=== PATIENT | male | born 1960 | race Caucasian/White ===

== ENCOUNTER 2023-09-24 12:11 | Inpatient (IN) | payer OTHER, SELFPAY ==
[2023-09-24 12:40] LABS: Absolute Eosinophils 0.2 K/uL (0-0.5); Absolute Lymphocytes (CBC) 1.9 K/uL (0.7-4.9); Absolute Monocytes 0.8 K/uL (0.1-1.3); Absolute Neutrophil 7.6 K/uL (1.8-8.0); Basophils % 0.3 % (0-1.3); Hematocrit 49.1 % (39.6-49.0); Hemoglobin 16.5 g/dL (13.6-17.9); Lymphocytes % 18.3 % (15.3-44.8); MCH 32.5 pg (27.0-35.0); MCHC 33.5 g/dL (32.0-36.0); MCV 96.9 fL (80-100); MPV 10.4 fL (7.6-11.3); Monocytes % 7.5 % (3.3-12.3); Neutrophils % 71.9 % (41.7-73.7); Platelets 159 thou/uL (152-406); RBC Red Blood Cell Count 5.07 M/uL (4.33-5.43); Red Cell Distribution Width 13.1 % (12.1-15.2)
[2023-09-24 12:45] LABS: PT Prothrombin Time 10.5 SECONDS (9.5-12.5); PTT, Activated Partial Thromb 29.3 SECONDS (24.3-36.9); Protime INR 0.95
--- NOTE | 2023-09-24 12:54 | RAD REPORT ---
EXAM DESCRIPTION: CT - Ct Stroke Brain Wo Cont - 09/24/2023 12:46 pm CLINICAL HISTORY: STROKE ALERT Headache, drowsiness, CVA symptomology COMPARISON: No comparisons TECHNIQUE: All CT scans are performed using dose optimization technique as appropriate and may inclu de automated exposure control or mA/KV adjustment according to patient size. FINDINGS: No intracranial hemorrhage, hydrocephalus or extra-axial fluid collection.Small right lacu fariba infarcts.No areas of brain edema or evidence of midline shift. Increased density is seen in the d ural venous sinuses and the intravascular structures. The paranasal sinuses and mastoids are clear. The calvarium is intact. IMPRESSION: No acute intracranial abnormality. Increased density in the dural venous sinuses and intravascular structures noted. This is of unclear etiology and significance and may be related to underlying blood conditions such as polycythemia. Adv ise clinical correlation. The findings were discussed with Dr. Ingram in the ER On 09/24/2023 at 12:20 p.m. by telephone.
[2023-09-24 13:00] LABS: Albumin 3.8 g/dL (3.4-5.0); Anion Gap 10.1 mEq/L (5.0-15.0); Bilirubin Direct 0.1 mg/dL (0-0.2); Bilirubin Indirect, Calculated 0.3 mg/dL (0.2-0.8); Bilirubin Total 0.4 mg/dL (0.2-1.0); Globulin 3.8 g/dL (2.3-3.5); Magnesium 2.1 mg/dL (1.6-2.4); Potassium 4.1 mEq/L (3.5-5.1); Protein, Total 7.6 g/dL (6.4-8.2); Troponin High Sensitivity 9.1 pg/mL (<58.9)
--- NOTE | 2023-09-24 13:03 | RAD REPORT ---
EXAM DESCRIPTION: CT - Head angio - 09/24/2023 12:52 pm CLINICAL HISTORY: LT SIDED WEAKNESS Headache, drowsiness, CVA symptomology COMPARISON: <Comparisons> TECHNIQUE: CT angiography of the head was performed with MIPs. All CT scans are performed using dose optimization technique as appropriate and may include automated exposure control or mA/KV adjustment according to patient size. FINDINGS: No evidence of large vessel occlusion. No evidence of aneurysm is detected. No flow-limiti ng stenosis or vascular malformation identified. Left vertebral artery appears dominant. There is diminutive flow seen in the vertebrobasilar system w ith significant flow reduction in the proximal basilar artery which may indicate stenosis. The visualized dural venous sinuses are patent. IMPRESSION: Diminished flow in the vertebrobasilar system is noted, with significant flow restrictio n in the proximal basilar which may indicate an focus of flow limiting stenosis. Elsewhere, no significant flow abnormality seen.
--- NOTE | 2023-09-24 13:07 | RAD REPORT ---
EXAM DESCRIPTION: CT - Neck Angio - 09/24/2023 12:52 pm CLINICAL HISTORY: LT SIDED WEAKNESS Headache, drowsiness, CVA symptomology COMPARISON: <Comparisons> TECHNIQUE: CT angiography of the neck vessels was performed with MIPs. All CT scans are performed using dose optimization technique as appropriate and may include automated exposure control or mA/KV adjustment according to patient size. FINDINGS: A left aortic arch is identified with normal three vessel configuration of the great vesse ls. No significant flow abnormality is seen of the common carotid bilaterally. Mild mixed plaque formation is seen in both carotid bulbs resulting in stenosis of 50% or less bilate rally based on NASCET criteria. The right vertebral artery is quite diminutive in caliber. The left vertebral artery demonstrates for flow and is dominant. Basilar artery intracranially shows probable stenosis of its mid aspect focall y. IMPRESSION: Mixed plaque formation in both carotid bulbs is mild and results in 50% or less stenosis bilaterally based on NASCET criteria. The right vertebral artery is very diminutive. 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 NASCET criteria used. Mild 0-49% stenosis Moderate 50-69% stenosis Severe 70-99% stenosis
--- NOTE | 2023-09-24 13:10 | RAD REPORT ---
EXAM DESCRIPTION: RAD - Chest Single View - 09/24/2023 12:56 pm CLINICAL HISTORY: stroke aler Chest pain. COMPARISON: No comparisons FINDINGS: Portable technique limits examination quality. Mild interstitial prominence is seen which is nonspecific. This may be related to mild interstitial p ulmonary edema or chronic bronchitis. The heart is upper limit normal in size. No displaced fractures .
--- NOTE | 2023-09-24 14:24 | EDPHYS ---
Physician Documentation [facility] Name: Mike Bills Age: 63 yrs Sex: Male : 1960 Arrival Date: 09/24/2023 Time: 12:11 Bed 3 Private MD: ED Physician Rebecca Fisher HPI: 09/23 13:50 This 63 yrs old Male presents to ER via Wheelchair with complaints of High Blood sd2 Pressure, S/S of Possible Stroke. 13:50 63 yo M presents with CC of stroke-like symptoms. reports he called her at 1101 sd2 saying he did not feel right and was having trouble lifting his left leg and slurred speech. Currently all symptoms have improved. Denies any associated numbness, tingling, vision changes. . Historical: - Allergies: 12:35 No Known Allergies; aa5 - PMHx: 12:35 Borderline Diabetes; Acid Reflux; Hip fracture and pelvic fracture; aa5 - PSHx: 12:35 None; aa5 - Immunization history:: Adult Immunizations unknown. - Infectious Disease History:: Denies. - Social history:: Smoking status: Patient reports the use of cigarette tobacco products. ROS: 13:50 Constitutional: Negative for fever, chills, and weight loss, Eyes: Negative for injury, sd2 pain, redness, and discharge, Cardiovascular: Negative for chest pain, palpitations, and edema, Respiratory: Negative for shortness of breath, cough, wheezing. Abdomen/GI: Negative for abdominal pain, nausea, vomiting, diarrhea. MS/Extremity: Negative for injury and deformity, Skin: Negative for injury, rash, and discoloration, Neuro: Negative for headache, numbness and tingling. Positive for weakness and slurred speech. Exam: 13:50 Constitutional: This is a well developed, well nourished patient who is awake, alert, sd2 and in no acute distress. Head/Face: Normocephalic, atraumatic. Eyes: EOMI, normal conjunctiva bilaterally Chest/axilla: Normal chest wall appearance and motion. Nontender with no deformity. Cardiovascular: Regular rate and rhythm with a normal S1 and S2. No gallops, murmurs, or rubs. 2+ distal pulses. Respiratory: Lungs have equal breath sounds bilaterally, clear to auscultation and percussion. No rales, rhonchi or wheezes noted. No increased work of breathing, no retractions or nasal flaring. Abdomen/GI: Soft, non-tender, with normal bowel sounds. No guarding or rebound. No evidence of tenderness throughout. Skin: Warm, dry with normal turgor. Normal color with no rashes, no lesions, and no evidence of cellulitis. MS/ Extremity: Pulses equal, no cyanosis. Neurovascular intact. Full, normal range of motion. Neuro: Awake and alert, GCS 15, oriented to person, place, time, and situation. Cranial nerves II-XII grossly intact. Motor strength 5/5 in all extremities. Sensory grossly intact. Cerebellar exam normal. Normal gait. Psych: Awake, alert, with orientation to person, place and time. Behavior, mood, and affect are within normal limits. 14:25 ECG was reviewed by the Attending Physician. NSR, rate 80, no STEMI criteria or sd2 significant ST-T wave changes Vital Signs: 12:28 BP 180 / 78; Pulse 83; Resp 16 S; Pulse Ox 99% on R/A; Weight 81.65 kg (R); Height 6 kc6 ft. 0 in. (R); Pain 0/10; 12:30 BP 172 / 91; Pulse 85; Resp 19 S; Pulse Ox 99% on R/A; kc6 14:00 BP 167 / 82; Pulse 78; Resp 16; Pulse Ox 99% ; tl4 14:30 BP 159 / 81; Pulse 97; Resp 20; Pulse Ox 100% on R/A; Pain 0/10; tl4 12:28 Body Mass Index 24.41 (81.65 kg, 182.88 cm) kc6 12:28 Pain Scale: Adult kc6 14:30 Pain Scale: Adult tl4 NIH Stroke Scale Scores: 12:14 NIHSS Score: 3 aa5 12:17 NIHSS Score: 1 kc6 MDM: 12:16 Patient medically screened. sd2 12:52 Differential diagnosis: hypertensive crisis, Malignant HTN, CVA, intracerebral sd2 hemorrhage, among others. Data reviewed: vital signs, nurses notes, lab test result(s), EKG, radiologic studies. Management of patient was discussed with the following: Health Care Specialist: Dr. Chen, Neurology, agrees with no TNK as patient with no focal neuro deficits at this time. Recommends admission and TIA workup evaluation including MRI, echo and permissive HTN . Independent interpretation of the following test(s) in the Emergency Department EKG: See my EKG interpretation above. Discussion of test interpretation with radiology: I had a discussion with radiology regarding a test interpretation. no bleed or clear signs of CVA. Historians other than the Patient: Spouse/Significant Other: Significant other at bedside provides further hx. Care significantly affected by the following chronic conditions: Diabetes. Counseling: I had a detailed discussion with the patient and/or guardian regarding the historical points, exam findings, and any diagnostic results supporting the discharge/admit diagnosis, lab results, radiology results. 14:21 ED course: Labs and imaging reviewed and discussed with patient and family at bedside. sd2 Recommended admission and pt in agreement. . 09/23 12:29 Order name: Basic Metabolic Panel; Complete Time: 13:01 sd2 09/23 12:29 Order name: CBC with Diff; Complete Time: 12:58 sd2 09/23 12:29 Order name: Hepatic Function; Complete Time: 13:01 sd2 09/23 12:29 Order name: High Sensitivity Troponin; Complete Time: 13:01 sd2 09/23 12:29 Order name: Magnesium; Complete Time: 13:01 sd2 09/23 12:29 Order name: Protime (+inr); Complete Time: 12:58 sd2 09/23 12:29 Order name: Ptt, Activated; Complete Time: 12:58 sd2 09/23 12:46 Order name: Glucose, Ancillary Testing; Complete Time: 12:58 EDMS 09/23 14:24 Order name: CREATININE WHOLE BLOOD; Complete Time: 14:25 EDMS 09/23 12:29 Order name: CT Stroke Brain w/o Contrast; Complete Time: 12:58 sd2 09/23 12:29 Order name: Stroke CXR 1 View; Complete Time: 13:18 sd2 09/23 12:44 Order name: Head angio; Complete Time: 13:18 EDMS 09/23 12:44 Order name: Neck Angio; Complete Time: 13:18 EDMS 09/23 12:28 Order name: Accucheck; Complete Time: 12:39 aa5 09/23 12:28 Order name: Cardiac monitoring; Complete Time: 12:39 aa5 09/23 12:28 Order name: EKG - Nurse/Tech; Complete Time: 12:39 09/23 12:28 Order name: IV Saline Lock; Complete Time: 12:39 09/23 12:28 Order name: Labs collected and sent; Complete Time: 12:39 09/23 12:28 Order name: NPO; Complete Time: 12:29 09/23 12:28 Order name: O2 Per Protocol; Complete Time: 12:29 09/23 12:28 Order name: O2 Sat Monitoring; Complete Time: 12:29 09/23 12:28 Order name: Stroke Swallow Screen; Complete Time: 12:39 09/23 12:29 Order name: Accucheck; Complete Time: 12:39 09/23 12:29 Order name: Cardiac monitoring; Complete Time: 12:39 09/23 12:29 Order name: EKG - Nurse/Tech; Complete Time: 12:39 09/23 12:29 Order name: IV Saline Lock; Complete Time: 12:39 09/23 12:29 Order name: Labs collected and sent; Complete Time: 12:39 09/23 12:29 Order name: NPO; Complete Time: 12:39 09/23 12:29 Order name: O2 Per Protocol; Complete Time: 12:39 09/23 12:29 Order name: O2 Sat Monitoring; Complete Time: 12:39 09/23 12:29 Order name: Stroke Swallow Screen; Complete Time: 12:39 sd2 Administered Medications: No medications were administered Point of Care Testing: Blood Glucose: 12:47 Blood Glucose: 272 mg/dL; kc6 Ranges: Critical Glucose Levels:Adult <50 mg/dl or >400 mg/dl <40 mg/dl or >180 mg/dl Disposition Summary: 09/24/23 14:23 Hospitalization Ordered Notes: Hospitalization Status: Inpatient Admission sd2 Provider: Gian Simmons Location: Telemetry/[facility] (Inpatient) sd2 Condition: Stable sd2 Problem: new sd2 Symptoms: have improved sd2 Bed/Room Type: Standard sd2 Room Assignment: 403(09/24/23 14:59) bc6 Diagnosis - Weakness sd2 - Slurred speech sd2 - Elevated blood-pressure reading, without diagnosis of hypertension sd2 - Hyperglycemia, unspecified sd2 Forms: - Medication Reconciliation Form sd2 - SBAR form sd2 - Leadership Thank You Letter sd2 NIH Stroke Scale - NIH Stroke Score Date: 09/24/2023 Time: 12:14 Total Score = 3 10. Dysarthria (speech clarity - read or repeat words) - 1(Mild to Moderate) 11. Extinction and Inattention (visual/tactile/auditory/spatial/personal) - 0(No abnormality) 1a. Level of Consciousness (LOC) - 0(Alert) 1b. Level of Consciousness (LOC) (Month \T\ Age) - 0(Both) 1c. LOC Commands (Open \T\ Closes Eyes/Advertising Columnist) - 0(Both) 2. Best Gaze (Lateral Gaze Paresis) - 0(Normal) 3. Visual Field Loss - 0(No visual loss) 4. Facial Palsy - 0(Normal) 5a. Left Arm: Motor (10-second hold) - 1(Drift) 5b. Right Arm: Motor (10-second hold) - 0(No drift) 6a. Left Leg: Motor (5-second hold - always test supine) - 1(Drift) 6b. Right Leg: Motor (5-second hold - always test supine) - 0(No drift) 7. Limb Ataxia (finger/nose \T\ heel/knowles - test with eyes open) - 0(Absent) 8. Sensory Loss (pinprick arms/legs/face) - 0(Normal) 9. Best Language: Aphasia (description/naming/reading) - 0(No aphasia) Initials: aa5 NIH Stroke Scale - NIH Stroke Score Date: 09/24/2023 Time: 12:17 Total Score = 1 10. Dysarthria (speech clarity - read or repeat words) - 0(Normal) 11. Extinction and Inattention (visual/tactile/auditory/spatial/personal) - 0(No abnormality) 1a. Level of Consciousness (LOC) - 0(Alert) 1b. Level of Consciousness (LOC) (Month \T\ Age) - 0(Both) 1c. LOC Commands (Open \T\ Closes Eyes/Advertising Columnist) - 0(Both) 2. Best Gaze (Lateral Gaze Paresis) - 0(Normal) 3. Visual Field Loss - 0(No visual loss) 4. Facial Palsy - 0(Normal) 5a. Left Arm: Motor (10-second hold) - 0(No drift) 5b. Right Arm: Motor (10-second hold) - 0(No drift) 6a. Left Leg: Motor (5-second hold - always test supine) - 1(Drift) 6b. Right Leg: Motor (5-second hold - always test supine) - 0(No drift) 7. Limb Ataxia (finger/nose \T\ heel/knowles - test with eyes open) - 0(Absent) 8. Sensory Loss (pinprick arms/legs/face) - 0(Normal) 9. Best Language: Aphasia (description/naming/reading) - 0(No aphasia) Initials: kc6 Signatures: Dispatcher [employer] EDMS Lisa Danielle, KITA RN aa5 Rebecca Fisher MD MD sd2 Becky Kc6 Corrections: (The following items were deleted from the chart) 12:29 12:29 Chest Single View+RAD.RAD.BRZ ordered. EDMS EDMS 12:29 12:29 BASIC METABOLIC PANEL+C.LAB.BRZ ordered. EDMS EDMS 12: 12:29 CBC+H.LAB.BRZ ordered. EDMS EDMS 12:29 12:29 HEPATIC FUNCTION+C.LAB.BRZ ordered. EDMS EDMS 12:29 12:29 Troponin High Sensitivity+C.LAB.BRZ ordered. EDMS EDMS 12: 12:29 MAGNESIUM+C.LAB.BRZ ordered. EDMS EDMS 12:29 12:29 PROTIME (+INR)+COAG.LAB.BRZ ordered. EDMS EDMS 12: 12:29 PTT, ACTIVATED+COAG.LAB.BRZ ordered. EDMS EDMS 12:30 12:30 CT-STROKE BRAIN W/O CONTRAST+CT.RAD.BRZ ordered. EDMS EDMS 12:30 12:30 Chest Single View+RAD.RAD.BRZ ordered. EDMS EDMS 12:32 12:29 Troponin High Sensitivity+C.LAB.BRZ ordered. EDMS EDMS 12:33 12:29 PROTIME (+INR)+COAG.LAB.BRZ ordered. EDMS EDMS 12:33 12:29 PTT, ACTIVATED+COAG.LAB.BRZ ordered. EDMS EDMS 12:34 12:29 BASIC METABOLIC PANEL+C.LAB.BRZ ordered. EDMS EDMS 12:34 12:29 CBC+H.LAB.BRZ ordered. EDMS EDMS 12:29 CT-STROKE BRAIN W/O CONTRAST+CT.RAD.BRZ ordered. EDMS EDMS 14:59 14:23 sd2 bc6
--- NOTE | 2023-09-24 14:24 | ER ---
Nurse's Notes [facility] Name: Mike Bills Age: 63 yrs Sex: Male : 1960 Arrival Date: 09/24/2023 Time: 12:11 Bed 3 Private MD: Diagnosis: Weakness;Slurred speech;Elevated blood-pressure reading, without diagnosis of hypertension;Hyperglycemia, unspecified Presentation: 09/23 12:13 Chief complaint: Chief complaint: Patient states: left sided weakness and slurred aa5 speech that began at 0900 today. 12:13 An acute neurological deficit is present. The patient has been moved to a treatment 5 area. Pre-hospital glucose is not applicable to this patient. Onset of symptoms was September 24, 2023. 12:13 Method Of Arrival: Wheelchair aa5 12:13 Acuity: MIRA 2 aa5 12:13 Coronavirus screen: At this time, the client does not indicate any symptoms associated aa5 with coronavirus-19. Ebola Screen: Patient denies travel to an Ebola-affected area in the 21 days before illness onset. 12:13 Risk Assessment: Do you want to hurt yourself or someone else? Patient reports no aa5 desire to harm self or others. 12:47 Initial Sepsis Screen: Does the patient meet any 2 criteria? No. Patient's initial [facility] sepsis screen is negative. Does the patient have a suspected source of infection? No. Patient's initial sepsis screen is negative. Triage Assessment: 12:47 The onset of the patients symptoms was September 24, 2023 at 11:00. kc6 Stroke Activation: Symtpom onset >3 hours and < 6 hours Physician: Stroke Attending; Name: ; Notified At: ; Arrived At: Physician: Chief Stroke Resident; Name: ; Notified At: ; Arrived At: Physician: Stroke Resident; Name: ; Notified At: ; Arrived At: Physician: ED Attending; Name: ; Notified At: ; Arrived At: Physician: ED Resident; Name: ; Notified At: ; Arrived At: Historical: - Allergies: 12:35 No Known Allergies; aa5 - PMHx: 12:35 Borderline Diabetes; Acid Reflux; Hip fracture and pelvic fracture; aa5 - PSHx: 12:35 None; aa5 - Immunization history:: Adult Immunizations unknown. - Infectious Disease History:: Denies. - Social history:: Smoking status: Patient reports the use of cigarette tobacco products. Screenin:17 [place] Swallow Protocol Brief Cognitive Screen What is your name? Normal, Where are you kc6 right now? Normal, What year is it? Normal. Oral Mechanism Examination Facial Symmetry: Normal, Motion: Normal, Lip Closure: Normal, Oral Mechanism Result: Normal. 3 oz Water Swallow Challenge: Pt able to drink all water without stopping, coughing, choking or throat clearing: Yes Result: PASS MD Notified: Rebecca Fisher MD. 12:17 VAN Screening: Arm Drift: Patient shows no arm weakness. Patient is VAN negative. kc6 Visual Disturbance: No visual disturbance noted. Aphasia: No aphasia noted. Neglect: No neglect noted. 12:40 [facility] ED Fall Risk Assessment (Adult) History of falling in the last 3 months, kc6 including since admission No falls in past 3 months (0 pts) Confusion or Disorientation No (0 pts) Intoxicated or Sedated No (0 pts) Impaired Gait No (0 pts) Mobility Assist Device Used No (0 pt) Altered Elimination No (0 pt) Score/Fall Risk Level 0 - 2 = Low Risk. Abuse screen: Denies threats or abuse. Denies injuries from another. Nutritional screening: No deficits noted. Tuberculosis screening: No symptoms or risk factors identified. Assessment: 12:14 Reassessment: Pt to CT via wheelchair, accompanied by me. . aa5 12:14 VAN Scoring: Arm Drift: Minor drift Visual Disturbance: No visual disturbance noted. aa5 Aphasia: No aphasia noted. Neglect: No neglect noted. 12:17 Reassessment: pt to [facility] wheelchair with KITA Perez. kc6 12:30 Reassessment: Pt back from CT via wheelchair, accompanied by me. . aa5 12:49 General: Appears in no apparent distress. comfortable, well groomed, well developed, kc6 Behavior is calm, cooperative, appropriate for age. Pain: Denies pain. Neuro: Level of Consciousness is awake, alert, obeys commands, Oriented to person, place, time, situation, Appropriate for age Wool Hanker are equal bilaterally Moves all extremities. Full function Gait is unsteady, Speech is normal, Facial symmetry appears normal, Pupils are PERRLA, Intact Babinski is positive. Cardiovascular: Capillary refill < 3 seconds. Respiratory: Airway is patent Trachea midline Respiratory effort is even, unlabored, Respiratory pattern is regular, symmetrical. GI: No signs and/or symptoms were reported involving the gastrointestinal system. : No signs and/or symptoms were reported regarding the genitourinary system. EENT: No signs and/or symptoms were reported regarding the EENT system. Derm: No signs and/or symptoms reported regarding the dermatologic system. Skin is intact, is healthy with good turgor, Skin is pink, warm \T\ dry. Musculoskeletal: No signs and/or symptoms reported regarding the musculoskeletal system. Circulation, motion, and sensation intact. Capillary refill < 3 seconds, Range of motion: intact in all extremities. 14:09 Reassessment: No changes from previously documented assessment. Patient and/or family tl4 updated on plan of care and expected duration. Pain level reassessed. Patient is alert, oriented x 3, equal unlabored respirations, skin warm/dry/pink. Vital Signs: 12:28 BP 180 / 78; Pulse 83; Resp 16 S; Pulse Ox 99% on R/A; Weight 81.65 kg (R); Height 6 kc6 ft. 0 in. (R); Pain 0/10; 12:30 BP 172 / 91; Pulse 85; Resp 19 S; Pulse Ox 99% on R/A; kc6 14:00 BP 167 / 82; Pulse 78; Resp 16; Pulse Ox 99% ; tl4 14:30 BP 159 / 81; Pulse 97; Resp 20; Pulse Ox 100% on R/A; Pain 0/10; tl4 12:28 Body Mass Index 24.41 (81.65 kg, 182.88 cm) kc6 12:28 Pain Scale: Adult kc6 14:30 Pain Scale: Adult tl4 NIH Stroke Scale Scores: 12:14 NIHSS Score: 3 aa5 12:17 NIHSS Score: 1 kc6 ED Course: 12:12 Patient arrived in ED. mr 12:13 Arm band placed on. aa5 12:15 Inserted saline lock: 22 gauge in right antecubital area, using aseptic technique. kc6 Blood collected. 12:16 Rebecca Fisher MD is Attending Physician. sd2 12:16 Natalie Barry RN is Primary Nurse. kc6 12:40 Triage completed. aa5 12:40 Patient has correct armband on for positive identification. Placed in gown. Bed in low kc6 position. Call light in reach. Side rails up X2. Adult w/ patient. Client placed on continuous cardiac and pulse oximetry monitoring. NIBP monitoring applied. lunchroom monitor on. Pillow given. 12:47 CT Stroke Brain w/o Contrast In Process Unspecified. EDMS 12:54 Head angio In Process Unspecified. EDMS 12:54 Neck Angio In Process Unspecified. EDMS 12:58 Stroke CXR 1 View In Process Unspecified. EDMS 13:30 Report given to KITA Schroeder. kc6 14:22 Gian Simmons is Hospitalizing Provider. sd2 15:23 Provided Education on: need for admission. mb9 15:23 No provider procedures requiring assistance completed. Patient admitted, IV remains in mb9 place. Administered Medications: No medications were administered Medication: 14:12 VIS not applicable for this client. tl4 Point of Care Testing: Blood Glucose: 12:47 Blood Glucose: 272 mg/dL; kc6 Ranges: Outcome: 14:23 Decision to Hospitalize by Provider. sd2 15:23 Admitted to Tele accompanied by tech, via wheelchair, room 403, mb9 15:23 Condition: stable 15:23 Instructed on the need for admit, 15:42 Patient left the ED. mb9 NIH Stroke Scale - NIH Stroke Score Date: 09/24/2023 Time: 12:14 Total Score = 3 10. Dysarthria (speech clarity - read or repeat words) - 1(Mild to Moderate) 11. Extinction and Inattention (visual/tactile/auditory/spatial/personal) - 0(No abnormality) 1a. Level of Consciousness (LOC) - 0(Alert) 1b. Level of Consciousness (LOC) (Month \T\ Age) - 0(Both) 1c. LOC Commands (Open \T\ Closes Eyes/Inspector Receiving) - 0(Both) 2. Best Gaze (Lateral Gaze Paresis) - 0(Normal) 3. Visual Field Loss - 0(No visual loss) 4. Facial Palsy - 0(Normal) 5a. Left Arm: Motor (10-second hold) - 1(Drift) 5b. Right Arm: Motor (10-second hold) - 0(No drift) 6a. Left Leg: Motor (5-second hold - always test supine) - 1(Drift) 6b. Right Leg: Motor (5-second hold - always test supine) - 0(No drift) 7. Limb Ataxia (finger/nose \T\ heel/knowles - test with eyes open) - 0(Absent) 8. Sensory Loss (pinprick arms/legs/face) - 0(Normal) 9. Best Language: Aphasia (description/naming/reading) - 0(No aphasia) Initials: aa5 NIH Stroke Scale - NIH Stroke Score Date: 09/24/2023 Time: 12:17 Total Score = 1 10. Dysarthria (speech clarity - read or repeat words) - 0(Normal) 11. Extinction and Inattention (visual/tactile/auditory/spatial/personal) - 0(No abnormality) 1a. Level of Consciousness (LOC) - 0(Alert) 1b. Level of Consciousness (LOC) (Month \T\ Age) - 0(Both) 1c. LOC Commands (Open \T\ Closes Eyes/Inspector Receiving) - 0(Both) 2. Best Gaze (Lateral Gaze Paresis) - 0(Normal) 3. Visual Field Loss - 0(No visual loss) 4. Facial Palsy - 0(Normal) 5a. Left Arm: Motor (10-second hold) - 0(No drift) 5b. Right Arm: Motor (10-second hold) - 0(No drift) 6a. Left Leg: Motor (5-second hold - always test supine) - 1(Drift) 6b. Right Leg: Motor (5-second hold - always test supine) - 0(No drift) 7. Limb Ataxia (finger/nose \T\ heel/knowles - test with eyes open) - 0(Absent) 8. Sensory Loss (pinprick arms/legs/face) - 0(Normal) 9. Best Language: Aphasia (description/naming/reading) - 0(No aphasia) Initials: kc6 Signatures: Dispatcher [employer] EDSD Chloe Kumar, Reg Reg mr ShashiLisa, RN RN [email or web address] Rebecca Fisher MD MD sd2 Natalie Barry RN RN kc6 Chloe Welch, RN RN mb9 Alexandre Wilson RN RN tl4 Corrections: (The following items were deleted from the chart) 12:40 12:13 Chief complaint: aa5 aa5 12:48 12:48 NIHSS Score: 3 aa5 aa5 12:52 12:17 NIHSS Score: 0 kc6 kc6 14:10 14:09 BP 167 / 82; Pulse 79bpm; Resp 18bpm; Pulse Ox 98% RA; mb9 tl4
[2023-09-24] MEDS ORDERED: FLUMAZENIL 0.1 MG/ML (5 mL VIAL) IV PRN (15:10)
[2023-09-24] MEDS ORDERED: ONDANSETRON 4 MG/2 ML VIAL IV PRN (15:10)
[2023-09-24] MEDS ORDERED: LORAZEPAM 1 MG TABLET PO PRN (15:18)
--- NOTE | 2023-09-24 15:33 | P.HP ---
Certification for Inpatient Patient admitted to: Inpatient With expected LOS: >2 Midnights Practitioner: I am a practitioner with admitting privileges, knowledge of patient current condition, hospital course, and medical plan of care. Services: Services provided to patient in accordance with Admission requirements found in Title 42 Section 412.3 of the Code of Federal Regulations Patient History Date of Service: 09/24/23 Reason for admission: left sided weakness History of Present Illness: Patient is a 63-year-old male with a past medical history of diabetes mellitus type II who presented to the ED with complaints of left-sided weakness. He reports weakness began this morning with left leg and arm weakness and slurred speech. Patient denies any medical history besides DMII in the past, but is not on any home medications. He states the last time he saw a doctor was many years ago. At the time of my examination, NIH stroke scale 2. + slow/slurred speech, left leg drift. Neurology was consulted in the ED, no TNK was given as patient with no focal neuro deficits at this time. Patient's son reports that he drinks 13+ beers per day, concern for alcohol withdrawal. Placed on alcohol withdrawal protocol. Plan to admit as inpatient for acute CVA/TIA. CT head: "No acute intracranial abnormality." CTA neck: "Mixed plaque formation in both carotid bulbs is mild and results in 50% or less stenosis bilaterally based on NASCET criteria. The right vertebral artery is very diminutive. Mid-basilar artery stenosis is likely present." CTA head: "Diminished flow in the vertebrobasilar system is noted, with significant flow restriction in the proximal basilar which may indicate an focus of flow limiting stenosis. Elsewhere, no significant flow abnormality see." Allergies No Known Allergies Allergy (Unverified 09/24/23 15:51) Home medications list reviewed: Yes (denies any home medications) - Past Medical/Surgical History Has patient received pneumonia vaccine in the past: No -: Diabetes Mellitus type II - Social History Smoking Status: Current every day smoker Alcohol use: Yes CD- Drugs: No Caffeine use: Yes Review of Systems 10-point ROS is otherwise unremarkable Neurological: Weakness, Change in Speech Physical Examination - Physical Exam General: Alert, In no apparent distress, Oriented x3 HEENT: Atraumatic, Normocephalic Neck: Supple Respiratory: Clear to auscultation bilaterally, Normal air movement Cardiovascular: No edema, Normal pulses, Regular rate/rhythm Gastrointestinal: Normal bowel sounds, Soft and benign Integumentary: No rashes, No breakdown Neurological: 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), Abnormal speech (slow/slurred) - Studies Laboratory Data (last 24 hrs) 09/24/23 09/24/23 09/24/23 12:28 12:28 12:28 WBC Cancelled Hgb Cancelled Hct Cancelled Plt Count Cancelled PT Cancelled INR Cancelled APTT Cancelled Sodium Cancelled Potassium Cancelled BUN Cancelled Creatinine Cancelled Glucose Cancelled Magnesium Total Bilirubin AST ALT Alkaline Phosphatase 09/24/23 09/24/23 09/24/23 12:15 12:15 12:15 WBC 10.60 Hgb 16.5 Hct 49.1 H Plt Count 159 PT 10.5 INR 0.95 APTT 29.3 Sodium 134 L Potassium 4.1 BUN 15 Creatinine 0.97 Glucose 288 H Magnesium 2.1 Total Bilirubin 0.4 AST 9 L ALT 22 Alkaline Phosphatase 102 Assessment and Plan - Plan Problem list CVA/TIA Alcohol abuse Hx Diabetes mellitus type II Hypertension CVA / TIA - Neurology Dr. Chen was consulted in the ED, no TNK was given as patient with no focal neuro deficits at this time. - obtain MRI brain - Echocardiogram and carotid doppler - Antiplatelet therapy and statin therapy - folic acid - Physical therapy / occupational therapy - swallow eval and advance diet as tolerated - Neuro checks q4h. NIH stroke scale every shift - DVT prophylaxis -Lipid profile -Permissive hypertension CT head: "No acute intracranial abnormality." CTA neck: "Mixed plaque formation in both carotid bulbs is mild and results in 50% or less stenosis bilaterally based on NASCET criteria. The right vertebral artery is very diminutive. Mid-basilar artery stenosis is likely present." CTA head: "Diminished flow in the vertebrobasilar system is noted, with significant flow restriction in the proximal basilar which may indicate an focus of flow limiting stenosis. Elsewhere, no significant flow abnormality see." Alcohol abuse - Patient's son reports that he drinks 13+ beers per day, concern for alcohol withdrawal. - alcohol withdrawal protocol set ordered -Thiamine, folic acid, electrolyte replacement per protocol -CIWA every 4 hours -Continue to monitor Diabetes mellitus type 2 -Patient reports being diagnosed with diabetes many years ago, was previously on metformin. He states he no longer is on metformin because he does not have diabetes anymore. -Hyperglycemia noted in the ED -Accu-Cheks ACHS -Insulin per sliding scale Hyperlipidemia Hypertension -Patient denies history of hypertension or hyperlipidemia -Lipid profile pending. -Start on statin therapy -Permissive hypertension given CVA -Hydralazine 5 mg IV every 6 hours for SBP >200 -Monitor vitals Full Code Dispo: ~24-48h - Advance Directives Does patient have a Living Will: No Does patient have a Durable POA for Healthcare: No Time Spent Managing Pts Care (In Minutes): 55
[2023-09-24 15:53] VITALS: BMI 24.7
[2023-09-24] MEDS ORDERED: HYDRALAZINE HCL 20 MG/ML VIAL IV PRN (16:14)
[2023-09-24] MEDS: NA CHLORIDE 0.9% 1,000 ML IV SCH (16:56)
[2023-09-24] MEDS: LORAZEPAM 1 MG TABLET PO SCH (16:56)
[2023-09-24] MEDS: INSULIN REGULAR (HUMAN) 100 UNIT/ML SQ SCH (18:04)
--- NOTE | 2023-09-24 21:08 | RAD REPORT ---
EXAM DESCRIPTION: MRI - Brain W/Wo Cont - 09/24/2023 8:52 pm CLINICAL HISTORY: CVA Headache, drowsiness, CVA symptomology COMPARISON: Head angio dated 09/24/2023; MRA Head Wo Cont dated 09/24/2023; MRA Neck W/Wo Cont dated 09/23 TECHNIQUE: Multi-sequence, multiplanar MR imaging of the brain was performed with contrast. FINDINGS: No intracranial hemorrhage, hydrocephalus, or extra-axial fluid collection.Mild periventri cular and deep white matter chronic microvascular ischemic changes. No edema or shift of midline stru ctures. No intracranial mass. There is a 12 mm acute CVA seen right janice.. The midline structures are normally formed. Mastoid air cells and paranasal sinuses are clear. Post-contrast images show no abnormal enhancement to suggest tumor or infection. IMPRESSION: 12 mm acute CVA right janice.
--- NOTE | 2023-09-24 21:11 | RAD REPORT ---
EXAM DESCRIPTION: MRI - MRA Head Wo Cont - 09/24/2023 8:53 pm CLINICAL HISTORY: Acute CVA CVA COMPARISON: <Comparisons> FINDINGS: 3D noncontrast [id number] MR angiography of the [place] was performed. No large vessel occlusion is seen. There is flow limitation seen in the mid basilar artery likely rel ated to a focal stenosis. The left vertebral artery is dominant. The visualized dural venous sinuses appear patent. IMPRESSION: Flow-limiting focal stenosis is suspected midbasilar artery.
--- NOTE | 2023-09-24 21:14 | RAD REPORT ---
EXAM DESCRIPTION: MRI - MRA Neck W/Wo Cont - 09/24/2023 8:53 pm CLINICAL HISTORY: Acute CVA COMPARISON: Brain W/Wo Cont dated 09/24/2023No comparisons FINDINGS: Contrast enhance 2D [id number] MR angiography of the neck vessels was performed. Left aortic arch is noted with normal great vessel origin pattern. Both common carotid arteries are widely patent. There is mild narrowing seen involving both carotid b ulbs without significant carotid stenosis. The right vertebral artery as not well visualized and pres umably hypoplastic. IMPRESSION: No significant carotid stenosis seen bilaterally. NASCET criteria used. Mild 0-49% stenosis Moderate 50-69% stenosis Severe 70-99% stenosis
[2023-09-24] MEDS: ATORVASTATIN 40 MG TAB PO SCH (21:50)
[2023-09-25] MEDS: FOLIC ACID 1 MG TABLET PO SCH (09:30)
[2023-09-25] MEDS: THIAMINE HCL 100 MG TABLET PO SCH (09:30)
[2023-09-25] MEDS: ASPIRIN EC 81 MG TAB PO SCH (09:30)
[2023-09-25] MEDS: MULTIVITAMIN TAB PO SCH (09:30)
[2023-09-25] MEDS: CLOPIDOGREL 75 MG TABLET PO SCH (09:30)
[2023-09-25 10:02] LABS: Albumin 3.3 g/dL (3.4-5.0); Anion Gap 8.8 mEq/L (5.0-15.0); Bilirubin Total 0.6 mg/dL (0.2-1.0); Globulin 3.2 g/dL (2.3-3.5); Magnesium 2.2 mg/dL (1.6-2.4); Phosphorus 2.5 mg/dL (2.5-4.9); Potassium 3.8 mEq/L (3.5-5.1); Protein, Total 6.5 g/dL (6.4-8.2)
[2023-09-25 10:03] LABS: Hematocrit 46.5 % (39.6-49.0); Hemoglobin 15.6 g/dL (13.6-17.9); MCH 32.5 pg (27.0-35.0); MCHC 33.6 g/dL (32.0-36.0); MCV 96.7 fL (80-100); MPV 10.2 fL (7.6-11.3); Platelets 141 thou/uL (152-406); RBC Red Blood Cell Count 4.81 M/uL (4.33-5.43); Red Cell Distribution Width 13.2 % (12.1-15.2)
--- NOTE | 2023-09-25 14:39 | EKG ---
Test Date: 2023-09-24 Test Time: 12:34:13 Sexologist: CAR MEASUREMENT RESULTS: Intervals: Rate: 80 NV: 144 QRSD: 94 QT: 380 QTc: 438 [place]: P: 28 NV: 144 QRS: 22 T: 38 INTERPRETIVE STATEMENTS: Normal sinus rhythm Left ventricular hypertrophy Abnormal ECG No previous ECG available for comparison Electronically Signed On 09-25-23 14:37:29 [address]T [address]
--- NOTE | 2023-09-25 19:20 | P.PN ---
Date of Service: 09/25/23 Subjective: Still with left-sided weakness, slurred speech No other acute events overnight ROS: 10 point ROS as noted above, otherwise negative Physical exam GEN: Alert, oriented, NAD HEENT: Normal conjunctiva, sclera anicteric CV: Regular rate and rhythm, no edema Pulm: Nonlabored respirations on room air ABD: Soft, nontender, nondistended MSK: No joint tenderness Integumentary: No rashes Neuro: Mildly slurred speech, left upper and lower extremity weakness NIH3 Vitals reviewed Problem List Right janice 12 mm acute CVA Focal stenosis mid basilar artery Diabetes mellitus type [id number] with noncompliance Hypertension Tobacco use disorder Alcohol use disorder Plan Right janice 12 mm acute CVA Focal stenosis mid basilar artery Continue aspirin, statin, Plavix Every 6 hours Accu-Cheks, NIH stroke scale every shift Neurology consult in place Recommend further evaluation as an outpatient for mid basilar artery stenosis Will need to continue DAPT for now, possible candidate for four-vessel angiogram at a later date [facility] for [facility] PT/OT following Diabetes mellitus type [id number] with noncompliance Hypertension Has not by medications for some time prior to hospitalization Obtain A1c Monitor blood pressure allowing for permissive hypertension in the next 4 hours Tobacco use disorder Alcohol use disorder Counseled on importance of alcohol/tobacco cessation VTE: Lovenox Code: Full Dispo: 2-3 days Time Spent Managing Pts Care (In Minutes): 35
[2023-09-26 08:13] LABS: Hematocrit 47.4 % (39.6-49.0); Hemoglobin 16.1 g/dL (13.6-17.9); MCH 32.9 pg (27.0-35.0); MCV 96.7 fL (80-100); MPV 10.1 fL (7.6-11.3); Platelets 151 thou/uL (152-406); Red Cell Distribution Width 12.9 % (12.1-15.2)
--- NOTE | 2023-09-26 09:40 | P.PN ---
Date of Service: 09/26/23 Subjective: Has had some improvement in left-sided weakness, speech Anxious to go to bed and try to walk ROS: 10 point ROS as noted above, otherwise negative Physical exam GEN: Alert, oriented, NAD HEENT: Normal conjunctiva, sclera anicteric CV: Regular rate and rhythm, no edema Pulm: Nonlabored respirations on room air ABD: Soft, nontender, nondistended MSK: No joint tenderness Integumentary: No rashes Neuro: Mildly slurred speech, left upper and lower extremity weakness NIH3 Vitals reviewed Problem List Right janice 12 mm acute ischemic CVA Focal stenosis mid basilar artery Diabetes mellitus type [id number] with noncompliance Hypertension Tobacco use disorder Alcohol use disorder Plan Right janice 12 mm acute ischemic CVA Focal stenosis mid basilar artery Continue aspirin, statin, Plavix Every 6 hours neurochecks, NIH stroke scale every shift Neurology consult in place Recommend further evaluation as an outpatient for mid basilar artery stenosis Will need to continue DAPT for now, possible candidate for four-vessel angiogram at a later date working with [facility] to determine [facility] benefits for inpatient re[facility] PT/OT following Diabetes mellitus type [id number] with noncompliance Hypertension Has not been on medications for some time prior to hospitalization Obtain A1c Monitor blood pressure allowing for permissive hypertension in the next 4 hours Tobacco use disorder Alcohol use disorder Counseled on importance of alcohol/tobacco cessation VTE: Lovenox Code: Full Dispo: 2-3 days Time Spent Managing Pts Care (In Minutes): 35 <Ezequiel Macedo - Last Filed: 09/26/23 09:38> Patient seen and examined. Plan of care discussed with Ezequiel Macedo. Patient reports significant improvement in his left-sided weakness. He has no problems swallowing. 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 Anticipating discharge to home with home health. Permissive hypertension. <yolanda griffith - Last Filed: 09/26/23 19:04>
[2023-09-26] MEDS: ENOXAPARIN 40 MG/0.4 ML SQ SCH (10:41)
[2023-09-26] MEDS ORDERED: LORAZEPAM 1 MG TABLET PO SCH (16:00)
[2023-09-26] MEDS: INSULIN REGULAR (HUMAN) 100 UNIT/ML ONE (20:11)
[2023-09-27 07:51] LABS: Hematocrit 49.6 % (39.6-49.0); Hemoglobin 16.7 g/dL (13.6-17.9); MCH 32.5 pg (27.0-35.0); MCHC 33.6 g/dL (32.0-36.0); MCV 96.8 fL (80-100); MPV 10.3 fL (7.6-11.3); Platelets 158 thou/uL (152-406); RBC Red Blood Cell Count 5.13 M/uL (4.33-5.43); Red Cell Distribution Width 13.1 % (12.1-15.2)
[2023-09-27 07:59] LABS: Anion Gap 7.2 mEq/L (5.0-15.0); Potassium 4.2 mEq/L (3.5-5.1)
--- NOTE | 2023-09-27 10:37 | P.PN ---
Date of Service: 09/27/23 Subjective: was able to walk with walker/PT yesterday some worsening LUE weakness, LLE still strong ROS: 10 point ROS as noted above, otherwise negative Physical exam GEN: Alert, oriented, NAD HEENT: Normal conjunctiva, sclera anicteric CV: Regular rate and rhythm, no edema Pulm: Nonlabored respirations on room air ABD: Soft, nontender, nondistended MSK: No joint tenderness Integumentary: No rashes Neuro: Mildly slurred speech, left upper and lower extremity weakness NIH3 Vitals reviewed Problem List Right janice 12 mm acute ischemic CVA Focal stenosis mid basilar artery Diabetes mellitus type [id number] with noncompliance Hypertension Tobacco use disorder Alcohol use disorder Plan Right janice 12 mm acute ischemic CVA Focal stenosis mid basilar artery Continue aspirin, statin, Plavix Every 6 hours neurochecks, NIH stroke scale every shift Neurology consult in place Recommend further evaluation as an outpatient for mid basilar artery stenosis Will need to continue DAPT for now, possible candidate for four-vessel angiogram at a later date working [facility] to [facility] for inpatient re[facility] PT/OT following Diabetes mellitus type [id number] with noncompliance Hypertension started on lisinopril 10mg 5/5 started on metformin 500mg BID 5/5 A1c still pending Tobacco use disorder Alcohol use disorder Counseled on importance of alcohol/tobacco cessation VTE: Lovenox Code: Full Dispo: 2-3 days Time Spent Managing Pts Care (In Minutes): 35 <Ezequiel Macedo - Last Filed: 09/27/23 10:35> Patient seen and examined. Plan of care discussed Ezequiel Macedo. Patient with fluctuating weakness in the left upper extremity. Left lower extremity keeps improving. He ambulated with a quad cane yesterday. Continue DAPT. Folic acid Neurology consult Continue PT. PT is evaluating for inpatient rehab versus home with PT. <yolanda griffith - Last Filed: 09/27/23 16:21>
[2023-09-27] MEDS: lisinopriL 10 MG TAB PO ONE (10:41)
[2023-09-27] MEDS: METFORMIN ER 500 MG TAB PO SCH (16:44)
--- NOTE | 2023-09-27 18:47 | RAD REPORT ---
EXAM DESCRIPTION: CT - Head Brain Wo Cont - 09/27/2023 6:20 pm CLINICAL HISTORY: Left arm numbness/weakness COMPARISON: September 24, 2023 TECHNIQUE: Computed axial tomography of the head was obtained. IV contrast was not requested. All CT scans are performed using dose optimization technique as appropriate and may include automated exposure control or mA/KV adjustment according to patient size. FINDINGS: 15 millimeter low-density right aspect of the janice compatible with early subacute infarcti on. No bleed The ventricles are normal in caliber No extra-axial fluid collection is noted. Old lacunar infarction right basal ganglia/right internal capsule/right caudate Fluid within the sinuses/ mastoids is not seen. IMPRESSION: 15 millimeter early subacute pontine infarction is unchanged in size. No bleed
[2023-09-27] MEDS: INSULIN REGULAR (HUMAN) 100 UNIT/ML ONE (20:45)
[2023-09-28 04:30] LABS: Anion Gap 7.3 mEq/L (5.0-15.0); Potassium 4.3 mEq/L (3.5-5.1)
[2023-09-28 04:31] LABS: Hematocrit 46.7 % (39.6-49.0); Hemoglobin 15.7 g/dL (13.6-17.9); MCH 32.7 pg (27.0-35.0); MCHC 33.6 g/dL (32.0-36.0); MCV 97.2 fL (80-100); MPV 10.6 fL (7.6-11.3); Platelets 169 thou/uL (152-406); Red Cell Distribution Width 12.7 % (12.1-15.2)
--- NOTE | 2023-09-28 07:02 | ECHO ---
HEIGHT: 6 ft 0 in WEIGHT: 182 lb 0 oz DATE OF STUDY: 09/25/[address]: 2-DIMENSIONAL: YES M.MODE: YES DOPPLER: YES COLOR FLOW: YES TDS: PORTABLE: YES DEFINITY: BUBBLE STUDY: DIAGNOSIS: STROKE CARDIAC HISTORY: CATHERIZATION: NO SURGERY: NO PROSTHETIC VALVE: NO PACEMAKER: NO MEASUREMENTS (cm) DIASTOLIC (NORMALS) SYSTOLIC (NORMALS) IVSd 1.3 (0.6-1.2) LA Diam 3.1 (1.9-4.0) LVEF 55-60% LVIDd 4.4 (3.5-5.7) LVIDs 3.3 (2.0-3.5) %FS 25% LVPWd 1.2 (0.6-1.2) Ao Diam 2.6 (2.0-3.7) 2 DIMENSIONAL ASSESSMENT: RIGHT ATRIUM: NORMAL LEFT ATRIUM: NORMAL RIGHT VENTRICLE: NORMAL LEFT VENTRICLE: NORMAL TRICUSPID VALVE: MITRAL VALVE: MILD MITRAL REGURGITATION PULMONIC VALVE: AORTIC VALVE: NORMAL PERICARDIAL EFFUSION: AORTIC ROOT: NORMAL LEFT VENTRICULAR WALL MOTION: NORMAL DOPPLER/COLOR FLOW: SEE BELOW COMMENTS: 1. NORMAL LEFT VENTRICULAR EJECTION FRACTION 55-60% 2. NORMAL WALL MOTION 3. GRADE I DIASTOLIC DYSFUNCTION 4. MILD MITRAL REGURGITATION TECHNOLOGIST: RONAL TAMAYO
[2023-09-28] MEDS ORDERED: lisinopriL 10 MG TAB PO SCH (09:00)
--- NOTE | 2023-09-28 09:29 | P.PN ---
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 Diabetes mellitus type [id number]-[id number] with noncompliance Hypertension Tobacco use disorder Alcohol use disorder Plan 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 Continue aspirin, statin, Plavix Every 6 hours neurochecks, NIH stroke scale every shift Neurology consult in place Recommend further evaluation as an outpatient for mid basilar artery stenosis Will need to continue DAPT for now, possible candidate for four-vessel angiogram at a later date [facility] PT/OT following Worsening LUE and LLE weakness 08/28 CT head repeated without changes or hemorrhagic conversion Diabetes mellitus type [id number]-[id number] with noncompliance Hypertension started on lisinopril 10mg 09/26 started on metformin 500mg BID 09/26 A1c is 10.2 Tobacco use disorder Alcohol use disorder Counseled on importance of alcohol/tobacco cessation VTE: Lovenox Code: Full Dispo: 2-3 days Time Spent Managing Pts Care (In Minutes): 35
[2023-09-28] MEDS: INSULIN REGULAR (HUMAN) 100 UNIT/ML SQ SCH ×2 (14:30→17:20)
[2023-09-28] MEDS ORDERED: INSULIN REGULAR (HUMAN) 100 UNIT/ML SQ SCH (21:00)
[2023-09-29 03:54] LABS: Hematocrit 47.1 % (39.6-49.0); MCV 96.9 fL (80-100); MPV 10.4 fL (7.6-11.3); Platelets 174 thou/uL (152-406); RBC Red Blood Cell Count 4.86 M/uL (4.33-5.43); Red Cell Distribution Width 12.8 % (12.1-15.2)
[2023-09-29 04:10] LABS: Anion Gap 6.2 mEq/L (5.0-15.0); Potassium 4.2 mEq/L (3.5-5.1)
[2023-09-29] MEDS: lisinopriL 10 MG TAB PO SCH (09:04)
--- NOTE | 2023-09-29 12:10 | P.PN ---
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 Diabetes mellitus type [id number] with noncompliance Hypertension Tobacco use disorder Alcohol use disorder Plan 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 Continue aspirin, statin, Plavix Every 6 hours neurochecks, NIH stroke scale every shift Neurology consult in place Recommend further evaluation as an outpatient for mid basilar artery stenosis Will need to continue DAPT for now, possible candidate for four-vessel angiogram at a later date working with [facility]rifle case repairer to determine possible benefits for inpatient rehab PT/OT following Worsening LUE and LLE weakness 4/6 NIH now 5 with 1/5 LUE strength and 2/[address] head repeated without changes or hemorrhagic conversion Diabetes mellitus type [id number]-nqnzepj-iwgmoqtvk with noncompliance Hypertension started on lisinopril 10mg 5/5 started on metformin 500mg BID 5/5 A1c is 10.2 Tobacco use disorder Alcohol use disorder Counseled on importance of alcohol/tobacco cessation VTE: Lovenox Code: Full Dispo: 2-3 days Time Spent Managing Pts Care (In Minutes): 35
[2023-09-30 03:58] LABS: Hematocrit 47.7 % (39.6-49.0); Hemoglobin 16.1 g/dL (13.6-17.9); MCHC 33.8 g/dL (32.0-36.0); MCV 97.8 fL (80-100); MPV 10.7 fL (7.6-11.3); Platelets 163 thou/uL (152-406); RBC Red Blood Cell Count 4.88 M/uL (4.33-5.43); Red Cell Distribution Width 12.9 % (12.1-15.2)
[2023-09-30 04:19] LABS: Anion Gap 9.2 mEq/L (5.0-15.0); Potassium 4.2 mEq/L (3.5-5.1)
--- NOTE | 2023-09-30 12:07 | P.PN ---
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 Diabetes mellitus type 1wcc-[id number]-nvyylvnpj with noncompliance Hypertension Tobacco use disorder Alcohol use disorder Plan 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 Continue aspirin, statin, Plavix Every 6 hours neurochecks, NIH stroke scale every shift Neurology consult in place Recommend further evaluation as an outpatient for mid basilar artery stenosis Will need to continue DAPT for now, possible candidate for four-vessel angiogram at a later date working with [facility]dis[facility] case manager to determine possible benefits for inpatient rehab PT/OT following Worsening LUE and LLE weakness 4/6 NIH now 4 with 1/5 LUE strength and 3/[address] head repeated without changes or hemorrhagic conversion working on possible rehab placement Diabetes mellitus type [id number]-[id number]-[id number] with noncompliance Hypertension started on lisinopril 10mg 5/- on hold now as BP on the low side 111 this morning started on metformin 500mg BID 5/ A1c is 10.2 Tobacco use disorder Alcohol use disorder Counseled on importance of alcohol/tobacco cessation VTE: Lovenox Code: Full Dispo: 2-3 days Time Spent Managing Pts Care (In Minutes): 35
--- NOTE | 2023-09-30 15:49 | P.DS ---
Admission Date: 09/24/23 Discharge Date: 09/30/23 Disposition: TRANSFER TO INPATIENT REHAB Discharge Condition: GOOD Reason for Admission: left sided weakness Consultations: Dr. Chen neurology Brief History of Present Illness: Patient is a 63-year-old male with a past medical history of diabetes mellitus type II who presented to the ED with complaints of left-sided weakness. He reports weakness began this morning with left leg and arm weakness and slurred speech. Patient denies any medical history besides DMII in the past, but is not on any home medications. He states the last time he saw a doctor was many years ago. At the time of my examination, NIH stroke scale 2. + slow/slurred speech, left leg drift. Neurology was consulted in the ED, no TNK was given as patient with no focal neuro deficits at this time. Patient's son reports that he drinks 13+ beers per day, concern for alcohol withdrawal. Placed on alcohol withdrawal protocol. Plan to admit as inpatient for acute CVA/TIA. CT head: "No acute intracranial abnormality." CTA neck: "Mixed plaque formation in both carotid bulbs is mild and results in 50% or less stenosis bilaterally based on NASCET criteria. The right vertebral artery is very diminutive. Mid-basilar artery stenosis is likely present." CTA head: "Diminished flow in the vertebrobasilar system is noted, with significant flow restriction in the proximal basilar which may indicate an focus of flow limiting stenosis. 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 Initial CT head without contrast was negative for acute findings, MRI of the brain showed a 12 mm acute CVA in the right janice area. MRA of the brain showed flow-limiting focal stenosis suspected in the mid basilar artery. These findings were discussed with neurology who recommends continuation of dual antiplatelet therapy, patient may benefit with four-vessel angiogram performed as an outpatient with neurosurgery. Unfortunately patient's left-sided deficits worsened during hospitalization resulting in left hemiplegia, at discharge left lower extremity strength is 3/5 and left upper extremity is 1/5. NIH score is [address] scan was performed without contrast which was negative for hemorrhagic conversion or new findings. Patient has been working diligently with physical therapy and has been able to walk short distances with a walker/4-prong cane. He will require intensive physical therapy to help regain as much function as possible of his left upper and lower extremities and to be able to get into his home that has multiple steps. He had not been on any medications prior to his hospitalization for the last few years, he has been initiated on aspirin, Plavix, atorvastatin 40 mg at bedtime, metformin 500 mg twice daily. Initially lisinopril 10 mg was started after allowing 48 hours afterwards hypertension, blood pressure is significantly improved and was on the low side this morning around 111 systolic, will hold off on lisinopril for now. May require initiation of antihypertensive agents in the future if blood pressures persistently elevated. Patient is been accepted to inpatient rehab for further PT. Please follow-up with your primary care doctor in 1 to 2 weeks after discharge You should also follow-up with a neurologist/neurosurgeon for further evaluation of the basilar artery stenosis and possibly a four-vessel angiogram to further assess. Patient will need new prescriptions for the aspirin, plavix, atorvastatin, metformin, and possibly anti hypertensive agent if warranted It is important to continue taking the daily baby aspirin, Plavix 75 mg daily, atorvastatin 40 mg at night as prescribed to reduce risk for further stroke anticipate overnight DC to inpatient rehab Vital Signs/Physical Exam: Temp Pulse Resp BP Pulse Ox 98 F 80 18 130/60 94 09/30/23 11:46 09/30/23 11:46 09/30/23 11:46 09/30/23 11:46 09/30/23 11:46 General: Alert, In no apparent distress, Oriented x3 HEENT: Atraumatic, PERRLA Neck: Supple, JVD not distended Respiratory: Clear to auscultation bilaterally, Normal air movement Cardiovascular: Regular rate/rhythm, Normal S1 S2 Gastrointestinal: Normal bowel sounds, No tenderness Musculoskeletal: No tenderness Integumentary: No rashes Neurological: Normal speech, Normal tone, Normal affect, Other (NIH-4), Abnormal strength (LLE-3/5 LUE 1/5) Lymphatics: No axilla or inguinal lymphadenopathy Laboratory Data at Discharge: WBC 10.80 thou/uL (4.3-10.9) 09/30/23 03:09 Hgb 16.1 g/dL (13.6-17.9) 09/30/23 03:09 Hct 47.7 % (39.6-49.0) 09/30/23 03:09 Plt Count 163 thou/uL (152-406) 09/30/23 03:09 PT Cancelled 09/24/23 12:28 INR Cancelled 09/24/23 12:28 APTT Cancelled 09/24/23 12:28 Sodium 135 mEq/L (136-145) L 09/30/23 03:09 Potassium 4.2 mEq/L (3.5-5.1) 09/30/23 03:09 BUN 19 mg/dL (7-18) H 09/30/23 03:09 Creatinine 0.93 mg/dL (0.70-1.30) 09/30/23 03:09 Glucose 251 mg/dL (74-106) H 09/30/23 03:09 Phosphorus 2.5 mg/dL (2.5-4.9) 09/25/23 03:11 Magnesium 2.2 mg/dL (1.6-2.4) 09/25/23 03:11 Total Bilirubin 0.6 mg/dL (0.2-1.0) 09/25/23 03:11 AST 6 U/L (15-37) L 09/25/23 03:11 ALT 20 U/L (16-61) 09/25/23 03:11 Alkaline Phosphatase 83 U/L (45-117) 09/25/23 03:11 Triglycerides 195 mg/dL (<150) H 09/25/23 03:11 Cholesterol 203 mg/dL (<200) H 09/25/23 03:11 HDL Cholesterol 41 mg/dL (40-60) 09/25/23 03:11 Cholesterol/HDL Ratio 4.95 09/25/23 03:11 Home Medications: Omeprazole 1 tab PO DAILY 09/24/23 Atorvastatin Calcium [Lipitor] 40 mg PO BEDTIME tab 09/30/23 Clopidogrel Bisulfate [Plavix*] 75 mg PO DAILY 09/30/23 Metformin ER [Glucophage ER*] 500 mg PO BIDWM tab.sa 09/30/23 Physician Discharge Instructions: Patient was admitted to the hospital for suspected ischemic CVA. Initial CT head without contrast was negative for acute findings, MRI of the brain showed a 12 mm acute CVA in the right janice area. MRA of the brain showed flow-limiting focal stenosis suspected in the mid basilar artery. These findings were discussed with neurology who recommends continuation of dual antiplatelet therapy, patient may benefit with four-vessel angiogram performed as an outpatient with neurosurgery. Unfortunately patient's left-sided deficits worsened during hospitalization resulting in left hemiplegia, at discharge left lower extremity strength is 3/5 and left upper extremity is 1/5. NIH score is [address] scan was performed without contrast which was negative for hemorrhagic conversion or new findings. Patient has been working diligently with physical therapy and has been able to walk short distances with a walker/4-prong cane. He will require intensive physical therapy to help regain as much function as possible of his left upper a nd lower extremities and to be able to get into his home that has multiple steps. He had not been on any medications prior to his hospitalization for the last few years, he has been initiated on aspirin, Plavix, atorvastatin 40 mg at bedtime, metformin 500 mg twice daily. Initially lisinopril 10 mg was started after allowing 48 hours afterwards hypertension, blood pressure is significantly impr brent and was on the low side this morning around 111 systolic, will hold off on lisinopril for now. May require initiation of antihypertensive agents in the future if blood pressures persistently elevated. Patient is been accepted to inpatient rehab for further PT. Please follow-up with your primary care doctor in 1 to 2 weeks after discharge You should also follow-up with a neurologist/neurosurgeon for further evaluation of the basilar artery stenosis and possibly a four-vessel angiogram to further assess. Patient will need new prescriptions for the aspirin, plavix, atorvastatin, metformin, and possibly anti hypertensive agent if warranted It is important to continue taking the daily baby aspirin, Plavix 75 mg daily, atorvastatin 40 mg at night as prescribed to reduce risk for further stroke Diet: AHA Activity: Fall precautions Followup: Tarik Chen MD [ASSOCIATE-ACTIVE - CAN ADMIT] - 1-2 Weeks NONE,NONE [Primary Care Provider] - 1-2 Weeks Time spent managing pt's care (in minutes): 35
[2023-09-30] MEDS: INSULIN REGULAR (HUMAN) 100 UNIT/ML ONE (16:33)
[2023-09-30 16:54] VITALS: O2SAT 96
--- NOTE | 2023-09-30 23:57 | CON ---
Reason For Consultation: Consultation called because of stroke. History Of Present Illness: Mr. Bills is a 63-year-old right-handed patient with diabe dashawn mellitus type 2, who developed left arm, face, leg, and slurred speech, that is weakness in that distribution on the morning of September 24, 2023. He had not seen a physician for few years. His NIH Stro ke Scale was 2 because of left leg weakness and slurred speech. The patient did not receive TNKs as he was not within the onset window for TNKs. Also noted that the patient has been drinking 13+ beers daily and was concerned for alcohol withdrawal. He has head CT scan in the emergency room, showed n o acute intracranial abnormality. There is increased density in the dural venous sinuses and intrava scular structures of unclear etiology. Also noted the possibility of polycythemia. Brain MRI with Emeli JOHNSON on September 24, 2023, showed flow limiting stenosis suspected in mid basilar artery. The left vertebral artery is dominant. Brain MRI itself done on September 23 showed 12 mm acute infarct in the right janice. The patient initially did improve significantly and then had more dense weakness in the left upper a nd lower extremities along with slurred speech. His CT angiogram studies as noted did not show size of the pontine area of focal stenosis or additional areas of any high-grade stenosis. Repeat head CT scan done 3 days after he has a brain MRI because of fluctuating symptoms showed the 15 mm subacute pontine infarct, is unchanged in size. No hemorrhagic conversion seen. Laboratory studies essential ly unremarkable complete blood count with differential. Coagulation panel unremarkable. Electrolyte panel showed a slightly low sodium of 135, potassium is normal at 4.2, chloride 104, creatinine 0.93 , glucose ranged from 181 to 251, calcium 8.9. His electrocardiogram showed normal sinus rhythm with left ventricular hypertrophy and his echocardiogram showed ejection fraction 55% to 60% with grade 1 diastolic dysfunction. Mild mitral regurgitation, otherwise normal. Past Medical History: Diabetes mellitus type 2, history of alcohol and tobacco use. Allergies: NO KNOWN DRUG ALLERGIES. Medications: He denied taking medications while at home. His current hospital medications include a spirin 162 mg daily, Lipitor 40 mg at bedtime, Plavix 75 mg daily, Lovenox 40 mg subcutaneous daily, folic acid 1 mg daily, metformin 500 mg twice daily, Centrum Silver 1 tablet daily, Zofran 4 mg every 6 hours as needed, thiamine 100 mg daily. Family History: Noncontributory. Review of Systems: Currently, reports the weakness in the left upper and lower extremity, which per the patient has impr brent over the last day. It is noted that after the stroke, the patient likely had maximal swelling o f the area around 5 days following the date of the onset of the symptoms and now showing some improve ment in recovering strength. Otherwise, he denies any fevers, chills, nausea, vomiting. Mild myalgi as, arthralgias. No rash, headache, weight change. He does have some episodes of crying for very li ttle reason consistent with pseudobulbar affect. Physical Examination: Vital Signs: Blood pressure 139/65, pulse 82, respiratory rate 18, temperature 98, oxygen saturation 96% on room air. General: Mr. Bills is resting in bed. HEENT: He is normocephalic, atraumatic. Sclerae anicteric. Oropharynx pink and moist. Neck: Supple. Chest: Clear. Heart: Regular. Extremities: Show no clubbing, cyanosis, or edema. Neurological: He has good labial, lingual, and guttural sounds. Mildly slow responses. Slight expr essive aphasia. Comprehension is intact. Cranial nerves; very subtle left nasolabial fold decrease. In terms of strength in lower extremities, he has zero movement noted in the left upper extremity p roximally and distally. In the left lower extremity, he is able to raise bed off leg, but is unable to keep it there, but still around 3/5 proximally and distally. Sensory exam, slight decreased light touch temperature in the left compared to right upper and lower extremity. Coordination intact in u pper and lower extremity. Reflexes symmetric. Gait, he did ambulate with a gait belt and a tendency to drift fall to the left. Assessment: Mr. Bills is a 63-year-old patient with a right pontine stroke about 13 or so mm, pr esents with left-sided weakness, numbness, dense in the arm and less so in the legs, and also affecti ng the base to some degree, but he is able to swallow. He has dyslipidemia, pseudobulbar affect, and uncontrolled diabetes mellitus. He would benefit from aggressive inpatient versus physical, occupat ional, and speech therapy. Plan: 1.The patient may continue with aspirin, Plavix, folic acid, statin. May consider Nuedexta for his pseudobulbar affect. 2.He should be able to be admitted to the inpatient rehabilitation unit for aggressive therapy. BRITTA/PALMA Voice ID: [id number] Report ID: [id number]
[2023-10-01 03:41] LABS: Hematocrit 49.3 % (39.6-49.0); Hemoglobin 16.4 g/dL (13.6-17.9); MCH 32.6 pg (27.0-35.0); MCHC 33.4 g/dL (32.0-36.0); MCV 97.8 fL (80-100); MPV 10.3 fL (7.6-11.3); Platelets 156 thou/uL (152-406); RBC Red Blood Cell Count 5.04 M/uL (4.33-5.43); Red Cell Distribution Width 12.9 % (12.1-15.2)
[2023-10-01 04:01] LABS: Anion Gap 8.2 mEq/L (5.0-15.0); Potassium 4.2 mEq/L (3.5-5.1)
[2023-10-01 04:47] VITALS: BP 128/58; TEMP 97.7
== END 2023-10-01 04:19 | DRG 65 ==
LOC: ER 12:11 → ERHOLD 14:53 → 4TH 15:10
PROVIDERS: ADMIT Internal Medicine; ATTEND Hospitalist
DX: I63.9 Cerebral infarction, unspecified (principal); G81.94 Hemiplegia, unspecified affecting left nondominant side; I10 Essential (primary) hypertension; D75.1 Secondary polycythemia; E78.5 Hyperlipidemia, unspecified; F10.10 Alcohol abuse, uncomplicated; I65.1 Occlusion and stenosis of basilar artery; E11.65 Type 2 diabetes mellitus with hyperglycemia; K21.9 Gastro-esophageal reflux disease without esophagitis; F17.210 Nicotine dependence, cigarettes, uncomplicated; R47.81 Slurred speech; R29.703 NIHSS score 3; T38.3X6A Underdosing of insulin and oral hypoglycemic [antidiabetic] drugs, initial encounter; Z91.128 Patient's intentional underdosing of medication regimen for other reason; Z91.148 Patient's other noncompliance with medication regimen for other reason
CPT/HCPCS: 36415; 70450; 70496; 70498; 70544; 70549; 70553; 71045; 80048; 80053; 80061; 80076; 82565; 82947; 83036; 83735; 84100; 84484; 85025; 85027; 85610; 85730; 92523; 93005; 93306; 97110; 97112; 97116; 97161; 97165; 97530; 99285; A9577; J1650; J1815; J7030; Q9967

== ENCOUNTER 2024-05-07 14:23 | Emergency (ER) | payer OTHER ==
--- OUTSIDE RECORDS SUMMARY | 2024-05-07 14:26 | XMS REPORT | Continuity of Care Document ---
Author Name Unknown Address [address] [facility] [place] [place] [address] [facility] thconnect Address [address] [facility] [place] [place] [address] Care Team Providers Care Taxi Truck Driver Name Role Phone Brody Beltrán Primary Care Physician Medications Ordered Medication Name Filled Medication Name Start Date Stop Date Current Medication? Ordering Clinician Indication Dosage Frequency Signature (SIG) Comments Components Source metformin ER 500 mg tablet,exte nded release 24 hr 10-05 00:00: 00 Yes mg Taj Duong atorvastati n 40 mg tablet 10-05 00:00: 00 Yes mg Taj Duong clopidogrel 75 mg tablet 10-05 00:00: 00 Yes mg Taj Duong folic acid 1 mg tablet 10-05 00:00: 00 Yes mg Taj Duong Vital Signs Vital Name Observation Time Observation Value Comments S ource Respiratory Rate 2023-10-13 09:25:00 Taj Duong BP Systolic 2023-10-13 09:25:00 126 mm[Hg] Bob hen Daisy Duong BP Diastolic 2023-10-13 09:25:00 65 mm[Hg] [place] Duong Weight Measured 2023-10-13 09:25:00 173.80 pounds Taj Duong Height Measured 2023-10-13 09:25:00 70.00 inches Taj Duong Body Temperature 2023-10-13 09:25:00 Taj Duong Heart Rate 2023-10-13 09:25:00 88.00 /min Kimberli Duong Encounters Start Date/Time End Date/Time Encounter Type Admission Type Attending [facility] Care Facility Care Department Encounter ID Source 2023-10-13 09:14:02 2023-10-13 09:14:02 Outpatient [facility] [id number] Taj Duong 2023-10-13 00:00:00 2023-10-13 00:00:00 Outpatient Visit [facility] [id number] Taj Duong
[2024-05-07 18:38] LABS: Absolute Basophils 0.1 K/uL (0-0.5); Absolute Lymphocytes (CBC) 1.6 K/uL (0.7-4.9); Absolute Monocytes 2.2 K/uL (0.1-1.3); Basophils % 0.4 % (0-1.3); Hematocrit 41.1 % (39.6-49.0); Hemoglobin 13.7 g/dL (13.6-17.9); Lymphocytes % 7.8 % (15.3-44.8); MCH 32.3 pg (27.0-35.0); MCHC 33.4 g/dL (32.0-36.0); MCV 96.7 fL (80-100); MPV 9.5 fL (7.6-11.3); Monocytes % 10.4 % (3.3-12.3); Neutrophils % 81.4 % (41.7-73.7); Nucleated Red Blood Cells % 0.1 % (0-0); Platelets 176 thou/uL (152-406); RBC Red Blood Cell Count 4.25 M/uL (4.33-5.43); Red Cell Distribution Width 13.5 % (12.1-15.2)
[2024-05-07 18:47] LABS: PTT, Activated Partial Thromb 22.8 SECONDS (24.3-36.9); Protime INR 1.26
[2024-05-07 18:56] LABS: ALT/SGPT 16 U/L (16-61); Albumin 3.6 g/dL (3.4-5.0); Alkaline Phosphatase 64 U/L (45-117); Anion Gap 8.4 mEq/L (5.0-15.0); BUN Blood Urea Nitrogen 17 mg/dL (7-18); Bicarbonate 27 mEq/L (21-32); Bilirubin Total 0.7 mg/dL (0.2-1.0); Globulin 3.7 g/dL (2.3-3.5); Glomerular Filtration Rate 102 ml/min (=/>90); Glucose Level 106 mg/dL (74-106); Potassium 4.4 mEq/L (3.5-5.1); Protein, Total 7.3 g/dL (6.4-8.2); Sodium Level 135 mEq/L (136-145)
[2024-05-07 18:57] LABS: AST/SGOT < 10 U/L (15-37)
[2024-05-07 18:59] LABS: Specific Gravity > 1.030 (1.005-1.030); Sqamous Epithelial <5 /HPF (None Seen); Urine Bacteria <20 /HPF (<20); Urine Bilirubin NEGATIVE (Negative); Urine Blood 3+ (OVER) (Negative); Urine Clarity Extremely Turbid (Clear); Urine Color Yellow (Yellow); Urine Crystals Unidentified Few /HPF (None Seen); Urine Culture Reflex Order REFLEXED; Urine Glucose 4+ (Over) (Negative); Urine Ketones 2+ (Negative); Urine Microscopic Reflex YN ORDER UMIC; Urine Mucus Slight /HPF (None Seen); Urine Nitrite 2+ (Negative); Urine Protein 1+ (Negative); Urine RBC >50 /HPF (None Seen); Urine Urobilinogen Normal (Normal); Urine WBC >50 /HPF (<5); Urine WBC Clump Rare /HPF (None Seen); Urine Yeast (Budding) Trace /HPF (None Seen)
--- NOTE | 2024-05-07 20:18 | RAD REPORT ---
EXAMINATION: CT ABDOMEN AND PELVIS WITH CONTRAST CLINICAL INDICATION: HEMATURIA TECHNIQUE: CT abdomen and pelvis was performed, after the administration of IV contrast, as per [facility] protocol. Axial, sagittal and coronal reconstructions were obtained. One or more of the following dose reduction techniques were used: Automated exposure control, adjustment of the mA and k V according to patient size, and iterative reconstruction. Unless otherwise specified, incidental findings do not require dedicated imaging follow-up. COMPARISON: No prior exam. FINDINGS: LOWER CHEST: The visualized lung bases are clear. LIVER: Normal in size and contour. No focal lesion. Grossly unremarkable gallbladder. SPLEEN: Normal size. No focal lesion. PANCREAS: No mass, ductal dilation, or faye-pancreatic fluid. ADRENALS: Normal; no mass. KIDNEYS: Normal size and contour. No hydronephrosis. GASTROINTESTINAL TRACT: No evidence of free air, significant intra-abdominal free fluid, bowel obstru ction or abscess. APPENDIX: Normal appendix. LYMPH NODES: No lymphadenopathy. MUSCULOSKELETAL: Mild lumbosacral degenerative changes. ADDITIONAL FINDINGS: Small fat-containing umbilical hernia. IMPRESSION: No acute or concerning abnormalities seen in the abdomen or pelvis.
--- NOTE | 2024-05-07 20:20 | EDPHYS ---
Physician Documentation [facility] Name: Mike Bills Age: 63 yrs Sex: Male : 1960 Arrival Date: 05/07/2024 Time: 14:23 Bed 16 Private MD: ED Physician Jamal Aguilar HPI: 05/07 18:41 This 63 yrs old Male presents to ER via Wheelchair with complaints of Urinary Problem, sb4 Fever. 18:41 The patient presents with urinary symptoms, dribbling of urine, dysuria, urinary sb4 frequency, retention. Onset: The symptoms/episode began/occurred yesterday. Modifying factors: The symptoms are alleviated by nothing, the symptoms are aggravated by nothing. Associated signs and symptoms: Pertinent positives: dysuria, fever, hematuria, weakness, fatigue. The patient has not experienced similar symptoms in the past. 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 - Social history:: Smoking status: Patient/guardian denies using tobacco, Stopped _ months ago 7. ROS: 18:41 Abdomen/GI: Negative for abdominal pain, nausea, vomiting, diarrhea, and constipation, sb4 18:41 Constitutional: Positive for fatigue, fever, malaise, 18:41 : Positive for urinary symptoms, urinary frequency, small amounts, hematuria, burning with urination, difficulty urinating, 18:41 All other systems are negative, Exam: 18:41 Head/Face: Normocephalic, atraumatic. Eyes: Extra-ocular motions intact. Periorbital sb4 areas with no swelling, redness, or edema. ENT: Mucous membranes moist. Cardiovascular: Regular rate and rhythm with a normal S1 and S2. Respiratory: No increased work of breathing, no retractions or nasal flaring. Abdomen/GI: Soft, non-tender, no distension. Skin: Warm, dry with normal turgor. Normal color with no rashes, no lesions, and no evidence of cellulitis. 18:41 Constitutional: The patient appears alert, awake, obviously ill, Vital Signs: 14:32 BP 141 / 54; Pulse 99; Resp 18; Temp 99.1; Pulse Ox 96% ; Weight 78.47 kg; Height 6 ft. ll1 0 in. ; Pain 5/10; 17:20 BP 118 / 51; Pulse 101; Resp 16; Temp 100.3; Pulse Ox 95% on R/A; iw 19:00 BP 126 / 56; Pulse 98; Resp 21; Pulse Ox 98% on R/A; cm10 21:15 BP 133 / 55; Pulse 98; Resp 16; Temp 100.5; Pulse Ox 96% on R/A; dd2 22:00 BP 111 / 56; Pulse 97; Resp 16; Pulse Ox 94% on R/A; dd2 23:30 BP 120 / 53; Pulse 86; Resp 16; Temp 98.4; Pulse Ox 95% ; dd2 05/08 01:17 BP 119 / 88; Pulse 94; Resp 16; Temp 98.9; Pulse Ox 98% on R/A; dd2 05/07 14:32 Body Mass Index 23.46 (78.47 kg, 182.88 cm) ll1 05/07 14:32 Pain Scale: Adult ll1 MDM: 05/07 16:19 Medical Screening Exam initiated sb4 20:19 Data reviewed: vital signs, nurses notes, lab test result(s), radiologic studies. sb4 Counseling: I had a detailed discussion with the patient and/or guardian regarding the historical points, exam findings, and any diagnostic results supporting the discharge/admit diagnosis, the presence of at least one elevated blood pressure reading (>120/80) during this emergency department visit, lab results, radiology results, the need to transfer to another facility, for higher level of care. 05/07 16:20 Order name: Blood Culture Adult (2) sb4 05/07 16:20 Order name: CBC with Diff; Complete Time: 00:51 sb4 05/07 16:20 Order name: CMP; Complete Time: 18:58 sb4 05/07 16:20 Order name: Lactate w/ 2H reflex if indic.; Complete Time: 19:10 sb4 05/07 16:20 Order name: Protime (+inr); Complete Time: 18:49 sb4 05/07 16:20 Order name: Ptt, Activated; Complete Time: 18:49 sb4 05/07 16:20 Order name: Urinalysis w/ reflexes; Complete Time: 19:10 sb4 05/07 17:38 Order name: Glucose, Ancillary Testing; Complete Time: 17:49 EDMS 05/07 19:03 Order name: Urine Culture EDIA 05/07 21:18 Order name: CBC Smear Scan; Complete Time: 00:51 EDMS 05/07 19:20 Order name: CT Abd/Pelvis - IV Contrast Only; Complete Time: 20:18 sb4 05/07 16:20 Order name: Accucheck; Complete Time: 17:53 sb4 05/07 16:20 Order name: Cardiac monitoring; Complete Time: 17:54 sb4 05/07 16:20 Order name: IV Saline Lock - Large Bore; Complete Time: 18:50 sb4 05/07 16:20 Order name: Labs collected and sent; Complete Time: 18:50 sb4 05/07 16:20 Order name: O2 Per Protocol; Complete Time: 17:54 sb4 05/07 16:20 Order name: O2 Sat Monitoring; Complete Time: 17:54 sb4 05/07 16:20 Order name: Vital Signs; Complete Time: 17:54 sb4 Administered Medications: 21:29 Drug: Acetaminophen PO 1000 mg PO once Route: PO; dd2 21:59 Follow up: Response: No adverse reaction dd2 21:30 Drug: Ciprofloxacin IVPB 400 mg 200 ml IVPB once over 60 mins Volume: 200 ml; Route: dd2 IVPB; Infused Over: 60 mins; Site: right antecubital; 21:45 Follow up: Response: No adverse reaction dd2 22:30 Follow up: IV Status: Completed infusion; IV Intake: 200ml dd2 05/08 01:29 Drug: Rocephin IV 1 grams IV at per protocol once; Given slow IV push per pharmacy dd2 instructions Route: IV; Rate: per protocol; Site: right antecubital; 01:44 Follow up: Response: No adverse reaction; IV Status: Completed infusion; IV Intake: [id number] 01:29 Drug: NS 0.9% IV 1000 ml IV at 1000 ml once; to be given as a bolus over 60 minutes dd2 Route: IV; Rate: 1000 ml; Site: right antecubital; 01:44 Follow up: Response: No adverse reaction dd2 02:17 Follow up: IV Status: Infusion continued upon transfer dd2 Disposition Summary: 12/14/24 20:19 Transfer Ordered Notes: Transfer Location: [facility] sb4 Reason: Higher level of care sb4 Condition: Fair sb4 Problem: new sb4 Symptoms: have improved sb4 Accepting Physician: travis(05/08/24 02:16) dd2 Diagnosis - UTI/ Urinary tract infection, site not specified sb4 - Sepsis, unspecified organism sb4 Forms: - Medication Reconciliation Form sb4 - SBAR form sb4 Signatures: Dispatcher [employer] EDGato Rosenberg MD MD cha Lewis, Lynsay RN RN ll1 Yun Shen PA-C PA-C sb4 IKER SHAY RN RN dd2 Corrections: (The following items were deleted from the chart) 05/07 18:52 16:36 Bladder Scanner ordered. sb4 cm10 20:19 20:19 nm sb4 sb4 20:19 20:19 Pyelonephritis acute sb4 sb4 05/08 02:16 05/07 20:19 nm sb4 dd2
--- NOTE | 2024-05-07 20:20 | ER ---
Nurse's Notes [facility] Name: Mike Bills Age: 63 yrs Sex: Male : 1960 Arrival Date: 05/07/2024 Time: 14:23 Bed 16 Private MD: Diagnosis: UTI/ Urinary tract infection, site not specified;Sepsis, unspecified organism Presentation: 05/07 14:32 Chief complaint: Patient states: Trouble urinating for 2 days. Oliguria with frequency ll1 since. Dribbling today, noticed blood in it today. Fever 100.3 at home. Coronavirus screen: Client denies travel out of the [place] in the last 14 days. At this time, the client does not indicate any symptoms associated with coronavirus-19. Ebola Screen: Patient denies travel to an Ebola-affected area in the 21 days before illness onset. Initial Sepsis Screen: Does the patient meet any 2 criteria? No. Patient's initial sepsis screen is negative. Does the patient have a suspected source of infection? No. Patient's initial sepsis screen is negative. Risk Assessment: Do you want to hurt yourself or someone else? Patient reports no desire to harm self or others. Onset of symptoms was May 06, 2024. 14:32 Method Of Arrival: Wheelchair ll1 14:32 Acuity: MIRA 3 ll1 Triage Assessment: 14:32 General: Appears uncomfortable, Behavior is calm, cooperative, appropriate for age. ll1 Pain: Complains of pain in pelvis Quality of pain is described as aching, crampy. : Reports pain with urination, urgency, urinary frequency, oliguria and dribbling. 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 - Social history:: Smoking status: Patient/guardian denies using tobacco, Stopped _ months ago 7. Screenin:53 [facility] ED Fall Risk Assessment (Adult) History of falling in the last 3 months, cm10 including since admission No falls in past 3 months (0 pts) Confusion or Disorientation No (0 pts) Intoxicated or Sedated No (0 pts) Impaired Gait Yes (1 pt) Mobility Assist Device Used Yes (1 pt) Altered Elimination No (0 pt) Score/Fall Risk Level 0 - 2 = Low Risk Oriented to surroundings, Maintained a safe environment, Hourly rounding (assess needs \T\ fall precautionary measures) done. Abuse screen: Denies threats or abuse. Denies injuries from another. Nutritional screening: No deficits noted. Tuberculosis screening: No symptoms or risk factors identified. Assessment: 18:54 General: Appears in no apparent distress. comfortable, Behavior is calm, cooperative. cm10 Neuro: No deficits noted. Level of Consciousness is awake, alert, obeys commands, Oriented to person, place, time, situation, Appropriate for age. Respiratory: No deficits noted. Airway is patent Respiratory effort is even, unlabored, Respiratory pattern is regular, symmetrical. : Reports burning with urination, urgency, urinary frequency. 05/08 00:10 Reassessment: Patient and/or family updated on plan of care and expected duration. Pain dd2 level reassessed. Patient is alert, oriented x 3, equal unlabored respirations, skin warm/dry/pink. Patient denies pain at this time. Patient states feeling better. Vital Signs: 05/07 14:32 BP 141 / 54; Pulse 99; Resp 18; Temp 99.1; Pulse Ox 96% ; Weight 78.47 kg; Height 6 ft. ll1 0 in. ; Pain 5/10; 17:20 BP 118 / 51; Pulse 101; Resp 16; Temp 100.3; Pulse Ox 95% on R/A; iw 19:00 BP 126 / 56; Pulse 98; Resp 21; Pulse Ox 98% on R/A; cm10 21:15 BP 133 / 55; Pulse 98; Resp 16; Temp 100.5; Pulse Ox 96% on R/A; dd2 22:00 BP 111 / 56; Pulse 97; Resp 16; Pulse Ox 94% on R/A; dd2 23:30 BP 120 / 53; Pulse 86; Resp 16; Temp 98.4; Pulse Ox 95% ; dd2 05/08 01:17 BP 119 / 88; Pulse 94; Resp 16; Temp 98.9; Pulse Ox 98% on R/A; dd2 05/07 14:32 Body Mass Index 23.46 (78.47 kg, 182.88 cm) ll1 05/07 14:32 Pain Scale: Adult ll1 ED Course: 05/07 14:27 Patient arrived in ED. mr 14:28 Arm band placed on. ll1 14:34 Triage completed. ll1 16:19 Yun Shen PA-C is PHCP. sb4 16:19 Jamal Aguilar MD is Attending Physician. sb4 18:43 Initial lab(s) drawn, by ED staff, sent to lab. Inserted saline lock: 20 gauge in right cm10 antecubital area, using aseptic technique. Blood collected. Flushed with 10 mL NS. 18:54 Patient has correct armband on for positive identification. Bed in low position. Call cm10 light in reach. Side rails up X2. Provided Education on: ER PROCESS AND PROCEDURES.. Client placed on continuous cardiac and pulse oximetry monitoring. NIBP monitoring applied. surveillance system monitor on. 19:09 Report given to KITA DONG. cm10 19:41 IKER SHAY RN is Primary Nurse. dd2 20:06 CT Abd/Pelvis - IV Contrast Only In Process Unspecified. EDMS 21:11 Tranfer initiated \T\ 2111. hw 23:23 Called [place] transfer center, no update on decision, rep will callback once decision is hw made. 05/08 00:52 Transfer accepted \T\[id number]. Enterpris to transport. hw 01:18 Report given to REPORT GIVEN TO KITA UCMMINGS AT [place] [facility]. dd2 02:15 No provider procedures requiring assistance completed. Patient transferred, IV remains dd2 in place. Administered Medications: 05/07 21:29 Drug: Acetaminophen PO 1000 mg PO once Route: PO; dd2 21:59 Follow up: Response: No adverse reaction dd2 21:30 Drug: Ciprofloxacin IVPB 400 mg 200 ml IVPB once over 60 mins Volume: 200 ml; Route: dd2 IVPB; Infused Over: 60 mins; Site: right antecubital; 21:45 Follow up: Response: No adverse reaction dd2 22:30 Follow up: IV Status: Completed infusion; IV Intake: 200ml dd2 05/08 01:29 Drug: Rocephin IV 1 grams IV at per protocol once; Given slow IV push per pharmacy dd2 instructions Route: IV; Rate: per protocol; Site: right antecubital; 01:44 Follow up: Response: No adverse reaction; IV Status: Completed infusion; IV Intake: [id number] 01:29 Drug: NS 0.9% IV 1000 ml IV at 1000 ml once; to be given as a bolus over 60 minutes dd2 Route: IV; Rate: 1000 ml; Site: right antecubital; 01:44 Follow up: Response: No adverse reaction dd2 02:17 Follow up: IV Status: Infusion continued upon transfer dd2 Medication: 05/07 18:53 VIS not applicable for this client. cm10 Intake: 22:30 IV: 200ml; Total: 200ml. dd2 05/08 01:44 IV: 10ml; Total: 210ml. dd2 Outcome: 05/07 20:19 ER care complete, transfer ordered by MD. orozco 05/08 02:15 Transferred by ground EMS to [facility] Transfer form completed. dd2 Condition: stable Instructed on the need for transfer, 02:16 Patient left the ED. dd2 Signatures: Dispatcher [employer] EDMS Chloe Kumar, Reg Reg mr Donna Martinez, RN Nikkie Mercer RN RN ll1 Yun Shen, PA-Alpesh PA-C sb4 Amparo Luo RN RN cm10 IKER SHAY RN RN dd2 Amy Morton
[2024-05-07] MEDS ORDERED: ACETAMINOPHEN 500 MG TAB ONE (21:09)
[2024-05-07] MEDS ORDERED: CIPROFLOXACIN 400mg IV 400 MG/200 ML BAG IV ONE (21:09)
[2024-05-07 21:18] LABS: Blood Morphology Comment NOT SEEN (NOT SEEN); Platelet Estimate ADEQ; White Blood Cell Scan OK (OK)
[2024-05-08] MEDS ORDERED: CEFTRIAXONE 1000 MG/VIAL ONE (01:22)
[2024-05-08] MEDS ORDERED: NA CHLORIDE 0.9% 1,000 ML ONE (01:22)
[2024-05-08 02:47] VITALS: BP 119/88; TEMP 98.9; O2SAT 98
== END 2024-05-08 02:16 ==
LOC: ER 14:23
DX: N39.0 Urinary tract infection, site not specified (principal); A41.9 Sepsis, unspecified organism
CPT/HCPCS: 96365; 96361; 87040; 87088; 85025; 81001; 87086; 36415; 85610; 82947; 83605; 85730; 87077; 87186; 80053; 74177; 96375; 99285; Q9967; J0744; J7030; J0696